=== PATIENT | female | born 1990 | race Caucasian/White ===

== ENCOUNTER 2018-02-07 09:02 | Emergency (ER) | payer SELFPAY ==
[~2018-02-07] VITALS: Ht 165.1 cm; Wt 79.5 kg
[2018-02-07 09:44] VITALS: BP 149/66
== END 2018-02-07 13:01 | disposition left against medical advice (07) ==
LOC: EMS 09:03
DX: Z53.21 Procedure and treatment not carried out due to patient leaving prior to being seen by health care provider (principal)